=== PATIENT | female | born 1955 | race Caucasian/White ===

== ENCOUNTER 2022-10-25 02:08 | Inpatient (IN) | payer MEDICARE, SELFPAY ==
[2022-10-25] VITALS (18 sets, daily range): BP systolic 114–179; BP diastolic 65–89; PULSE 96–128; RESP 16–24; TEMP 36.3–36.6; O2SAT 88–98; BMI 31.4; BMI 31.1
--- NOTE | 2022-10-25 02:51 | XRR_ITS ---
PROCEDURE INFORMATION: Exam: XR Chest Exam date and time: 10/25/2022 3:19 AM Age: 66 years old Clinical indication: Shortness of breath; Additional info: SOB TECHNIQUE: Imaging protocol: Radiologic exam of the chest. Views: 1 view. COMPARISON: No relevant prior studies available. FINDINGS: Lungs: Right basilar airspace opacity. Pleural spaces: Unremarkable. No pleural effusion. No pneumothorax. Heart/Mediastinum: Unremarkable. No cardiomegaly. Bones/joints: Partially imaged hardware in the cervical spine. XR/XR chest 1V portable [id number] IMPRESSION: Right basilar airspace opacity may reflect atelectasis versus pneumonia.
[2022-10-25] MEDS: ipratropium-albuterol 3 mL Neb INHALATION ×4 (03:01→19:46)
[2022-10-25 03:09] LABS: Basophils % 0.2 %; Eosinophils # 0.2 10^3/uL (0.0-0.8); Eosinophils % 2.5 %; Hematocrit 49.2 % (37.0-47.0); Hemoglobin 15.6 g/dL (11.5-15.3); Lymphocytes # 1.8 10^3/uL (0.8-4.8); Lymphocytes % 19.7 %; Mean Corpuscular HGB Conc 31.7 g/dL (30.0-36.0); Mean Corpuscular Hemoglobin 30.8 pg (28.0-34.0); Mean Platelet Volume 12.4 fL (7.4-10.4); Monocytes # 0.6 10^3/uL (0.2-0.9); Monocytes % 6.2 %; Neutrophils % 70.9 %; Nucleated Red Blood Cells % 0 %; Platelet Count 143 10^3/cmm (130-400); Red Blood Count 5.07 10^6/uL (4.1-5.3); Red Cell Distribution Width 13.6 % (12.1-15.1); White Blood Count 9.3 10^3/uL (4.0-10.0)
[2022-10-25 03:15] LABS: ABG PCO2 48.5 mmHg (35-45); ABG PH Result 7.35 (7.35-7.45); Arterial Blood Gas Hematocrit 50.2 % (37-47); Base Excess ABG 0.5 mmol/L (-2.0-2.0); Blood Gas Allen Test Pos; Blood Gas LPM 2.5 %; Blood Gas Sample Site Radial, left; Blood Gas Sample Type Arterial; Carboxyhemoglobin 1.8 %THgb (0.4-20.1); HGB O2 Sat 96.1 % (95-100); Methemoglobin 0.5 % (0.4-1.5); Oxygen Device NC; Total Hemoglobin 16.4 g/dL (12-16)
[2022-10-25 03:33] LABS: Lactic Sepsis W/Reflex 0.8 mmol/L (0.5-2.2)
[2022-10-25 03:43] LABS: Alanine Aminotransferase 10 U/L (0-33); Alkaline Phosphatase 64 U/L (35-105); Anion Gap 15.3 (5-19); Aspartate Amino Transferase 14 U/L (0-32); Blood Urea Nitrogen 10 mg/dL (8-23); Carbon Dioxide 24 mmol/L (22-29); Chloride 101 mmol/L (98-107); Globulin 3.4 g/dL (1.3-4.6); Glucose 129 mg/dL (65-115); Magnesium 1.8 mg/dL (1.7-2.3); NT Pro B Type Natriuretic Pept 46 pg/mL (0-125); Osmolality Calculated 283 mOsm/kg (285-295); Potassium 4.3 mmol/L (3.5-5.1); Sodium 136 mmol/L (136-145); Total Bilirubin 0.4 mg/dL (0.15-1.2); Total Protein 7.4 g/dL (6.6-8.7)
[2022-10-25 03:48] LABS: Influenza A by IFA negative (Negative); Influenza B by IFA negative (Negative); SARS Covid-2 Antigen negative (Negative)
--- NOTE | 2022-10-25 04:23 | ED_ITS ---
HPI - SOB/Dyspnea General: Chief Complaint: Shortness of Breath/Dyspnea Stated Complaint: Difficulty breathing, COPD flare up Time Seen by Provider: 10/25/22 02:23 History of Present Illness: HPI Narrative: 66-year-old lady with a history of COPD. She presents with increasing shortness of breath, wheezing, cough and sputum production over the last couple of days. She does not have oxygen at home. She notes that it was hard to keep her oxygen level up the past day or so. She denies overt chest pain, but does note tightness. MD elicited complaint: shortness of breath and cough Pertinent past history: COPD Onset (ago): day(s) Context: other Timing: progressively worsening Severity: moderate Exacerbating factors: lying flat and exertion Relieving factors: oxygen and bronchodilators Known history of: COPD Associated symptoms: Reports chest congestion, cough, nausea and orthopnea; Deny abdominal pain, chest pain, diaphoresis, extremity pain, fever(s) or vomiting Treatment prior to arrival: none Related Data: Home oxygen amount: none Review of Systems Const: Denies: fever(s), chills or diaphoresis ENMT: Denies: throat pain Card: Reports: orthopnea; Denies: chest pain Resp: Reports: dyspnea, productive cough and chest congestion GI: Reports: nausea; Denies: abdominal pain or vomiting Musc: Denies: extremity pain Skin/Breast: Denies: rash PFSH ED PFSH: Medical History Anxiety Back pain COPD (chronic obstructive pulmonary disease) Diabetes type 2, controlled Dyslipidemia associated with type 2 diabetes mellitus Former smoker HTN (hypertension) with goal to be determined Incontinence Insomnia Neuropathy Osteoarthritis Spinal stenosis Surgical History History of back surgery Family History Father No problems noted. Mother Chronic kidney disease (CKD) Hypertension Social History Smoking and tobacco status: former smoker Quit status (tobacco): has quit using tobacco Second hand smoke exposure: No Smoking risk assessment/counseling performed?: No Alcohol intake: never Desire information about alcohol rehabilitation?: No Counseling given: No Substance/Drug Use: never Desire information about substance/drug rehabilitation?: No Counseling given: No Physical Exam Const: GENERAL APPEARANCE: cooperative, ill appearing and frail appearing HENMT: COMMON NORMALS: normocephalic, atraumatic and Normal external nose present HEAD & SCALP: normocephalic and atraumatic FACE & SINUS: normal facial exam and face symmetric NOSE: Normal external nose present Eye: COMMON NORMALS: Equal, round and reactive pupils present and EOMs intact bilaterally PUPIL: Yes Equal, round and reactive pupils present Neck/C-Spine: GENERAL: Yes trachea midline Chest: CHEST: Yes Symmetrical chest wall rise Resp: EFFORT & INSPECTION: Yes tachypneic and Yes labored AUSCULTATION: rhonchi, wheezes and diminished lung sounds Cardio: COMMON NORMALS: regular rhythm RATE: tachycardic RHYTHM: regular rhythm GI: COMMON NORMALS: Normal to inspection, nondistended, normoactive bowel sounds present Extremity: COMMON NORMALS: no pedal edema Neuro: DEANNA COMA SCALE: document GCS findings [place] coma scale eye o pening: Spontaneous [place] coma scale verbal response: Orientated Deanna coma scale motor response: Obey commands [place] coma scale total score: 15 SENSORY EXAM: Yes extremities (intact) Psych: COMMON NORMALS: speech normal SPEECH: Yes normal speech Skin: COMMON NORMALS: no rashes or lesions noted GENERAL SKIN EXAM: no rashes or lesions noted Course Vital Signs: Vital signs: Vital Signs Temperature 97.4 F L 10/25/22 02:18 Pulse Rate 109 H 10/25/22 04:12 Respiratory Rate 16 10/25/22 04:12 Blood Pressure 153/83 10/25/22 04:12 Pulse Oximetry 94 10/25/22 04:12 Oxygen Delivery Me thod Nasal Cannula 10/25/22 03:31 Oxygen Flow Rate 4 10/25/22 03:31 MDM - SOB/Dyspnea Medical Decision Making 66-year-old female with COPD. She presents with shortness of breath. She is wheezing and has rhonchi on exam bilaterally. Chest x-ray does not reveal an infiltrate. Her white blood cell count is 9. Hemoglobin 15. BMP is not remarkable. Liver enzymes are nonremarkable. Influenza COVID swabs are negative. She has received DuoNeb treatments, Solu-Medrol. She is improved to some degree, but still requiring 3 L of oxygen to get to 90% and above. She is still tachycardic in the 110s. She will require hospitalization for oxygen therapy, nebs, steroids, etc. She is diabetic, so blood sugar control may be an issue on steroids. Hospitalist is aware. Lab Data 10/25/22 03:00 10/25/22 03:00 Labs/Radiology: Laboratory Results WBC 9.3 10^3/uL (4.0-10.0) 10/25/22 03:00 RBC 5.07 10^6/uL (4.1-5.3) 10/25/22 03:00 Hgb 15.6 g/dL (11.5-15.3) H 10/25/22 03:00 Hct 49.2 % (37.0-47.0) H 10/25/22 03:00 MCV 97.0 fl (81-99) 10/25/22 03:00 MCH 30.8 pg (28.0-34.0) 10/25/22 03:00 MCHC 31.7 g/dL (30.0-36.0) 10/25/22 03:00 RDW 13.6 % (12.1-15.1) 10/25/22 03:00 Plt Count 143 10^3/cmm (130-400) 10/25/22 03:00 MPV 12.4 fL (7.4-10.4) H 10/25/22 03:00 Neut % (Auto) 70.9 % 10/25/22 03:00 Lymph % (Auto) 19.7 % 10/25/22 03:00 Hanson % (Auto) 6.2 % 10/25/22 03:00 Eos % (Auto) 2.5 % 10/25/22 03:00 Baso % (Auto) 0.2 % 10/25/22 03:00 Neut # (Auto) 6.60 10^3/uL (1.8-7.7) 10/25/22 03:00 Lymph # (Auto) 1.8 10^3/uL (0.8-4.8) 10/25/22 03:00 Hanson # (Auto) 0.6 10^3/uL (0.2-0.9) 10/25/22 03:00 Eos # (Auto) 0.2 10^3/uL (0.0-0.8) 10/25/22 03:00 Baso # (Auto) 0.0 10^3/uL (0.0-0.1) 10/25/22 03:00 Nucleated RBC % (auto) 0 % 10/25/22 03:00 Nucleated RBCs # 0.0 /100WBC 10/25/22 03:00 Specimen Type Arterial 10/25/22 03:05 Sample Site Radial, left 10/25/22 03:05 ABG pH 7.35 (7.35-7.45) 10/25/22 03:05 ABG pCO2 48.5 mmHg (35-45) H 10/25/22 03:05 ABG pO2 97.0 mmHg (80.0-100.0) 10/25/22 03:05 ABG HCO3 27.0 mmol/L (22-26) H 10/25/22 03:05 ABG Base Excess 0.5 mmol/L (-2.0-2.0) 10/25/22 03:05 Moises Test Pos 10/25/22 03:05 Hematocrit 50.2 % (37-47) H 10/25/22 03:05 Hgb O2 Saturation 96.1 % (95-100) 10/25/22 03:05 Carboxyhemoglobin 1.8 %THgb (0.4-20.1) 10/25/22 03:05 Methemoglobin 0.5 % (0.4-1.5) 10/25/22 03:05 Total Hemoglobin 16.4 g/dL (12-16) H 10/25/22 03:05 O2 Delivery Device Nc 10/25/22 03:05 O2 Liters/Min 2.5 % 10/25/22 03:[address] [facility] 10/25/22 03:05 Sodium 136 mmol/L (136-145) 10/25/22 03:00 Potassium 4.3 mmol/L (3.5-5.1) 10/25/22 03:00 Chloride 101 mmol/L (98-107) 10/25/22 03:00 Carbon Dioxide 24 mmol/L (22-29) 10/25/22 03:00 Anion Gap 15.3 (5-19) 10/25/22 03:00 BUN 10 mg/dL (8-23) 10/25/22 03:00 Creatinine 0.6 mg/dL (0.5-0.9) 10/25/22 03:00 GFR Calculation 100.0 mL/min (90-130) 10/25/22 03:00 Glucose 129 mg/dL (65-115) H 10/25/22 03:00 Calculated Osmolality 283 mOsm/kg (285-295) L 10/25/22 03:00 Lactic Acid 0.8 mmol/L (0.5-2.2) 10/25/22 03:00 Calcium 9.0 mg/dL (8.5-10.5) 10/25/22 03:00 Magnesium 1.8 mg/dL (1.7-2.3) 10/25/22 03:00 Total Bilirubin 0.4 mg/dL (0.15-1.2) 10/25/22 03:00 AST 14 U/L (0-32) 10/25/22 03:00 ALT 10 U/L (0-33) 10/25/22 03:00 Alkaline Phosphatase 64 U/L (35-105) 10/25/22 03:00 NT-Pro-B Natriuret Pep 46 pg/mL (0-125) 10/25/22 03:00 Total Protein 7.4 g/dL (6.6-8.7) 10/25/22 03:00 Albumin 4.0 g/dL (3.5-5.2) 10/25/22 03:00 Globulin 3.4 g/dL (1.3-4.6) 10/25/22 03:00 Influenza Type A Ag negative (Negative) 10/25/22 03:30 Influenza Type B Ag negative (Negative) 10/25/22 03:30 SARS-CoV-2 Ag (Rapid) negative (Negative) 10/25/22 03:30 Discharge Plan Discharge Patient Disposition: Admitted As Inpatient Clinical Impression: Acute respiratory failure with hypoxia, Acute exacerbation of chronic obstructive airways disease Condition: Fair Coding Level of Care Code ED Validation Consultant for Paul Peña
--- NOTE | 2022-10-25 06:13 | PM.HP ---
Providers/Chief Complaint Admitting Physician: Samir Pimentel MD Primary Care Provider: Cooper Patel MD Chief Complaint: Difficulty breathing, COPD flare up History of Present Illness Fanny Dao is a 66 year old female with a past medical history of COPD, type 2 diabetes mellitus, hypertension who presents [facility] due to a 2-day history of increased shortness of breath, wheezing, productive cough. Denies any fevers, no chills, no fatigue, no malaise. Does report a productive cough, increased sputum production, yellow-green sputum. Increased shortness of breath, shortness of breath with exertion, increased wheezing, no chest pain, no palpitations Review of Systems Const: Denies: fever(s) Eyes: Denies: change in vision ENMT: Denies: nasal congestion Card: Denies: chest pain or palpitations Resp: Reports: dyspnea and non-productive cough GI: Denies: abdominal pain, nausea or vomiting : Denies: dysuria Skin/Breast: Denies: rash Neuro: Denies: headache(s), dizziness or vertigo Psych: Denies: anxiety or depression Endo: Denies: polyuria or polydipsia Medications/Allergies Home Medications Medication Instructions Recorded Confirmed Last Taken Type amlodipine 5 mg tablet 5 mg PO DAILY blood pressure #30 09/16/22 09/30/22 Unknown Rx tabs ipratropium bromide 0.02 % 2.5 ml inhalation Q6H PRN 09/16/22 09/30/22 Unknown History solution for inhalation metformin 500 mg tablet 500 mg PO DAILY #30 tabs 09/16/22 09/30/22 Unknown Rx prednisone 10 mg tablet 10 mg PO DAILY PRN 09/16/22 09/30/22 Unknown History pregabalin 100 mg capsule 100 mg PO TID diabetic neuropathy 09/16/22 09/30/22 Unknown Rx #90 caps lisinopril 40 mg tablet 40 mg PO DAILY hypertension #30 09/17/22 09/17/22 Unknown Rx tabs guaifenesin 600 mg tablet, 600 mg PO BID breathing #60 tabs 09/30/22 09/30/22 Unknown Rx extended release 12 hr hydroxyzine HCl 25 mg tablet 25 mg PO BID PRN anxiety #60 tabs 09/30/22 09/30/22 Unknown Rx rosuvastatin 20 mg tablet 20 mg PO DAILY cholesterol #30 tabs 09/30/22 09/30/22 Unknown Rx sertraline 100 mg tablet 100 mg PO DAILY mental health #30 09/30/22 09/30/22 Unknown Rx tabs trazodone 100 mg tablet 100 mg PO DAILY PRN insomnia #30 09/30/22 09/30/22 Unknown Rx tabs albuterol sulfate 90 mcg/actuation 2 puff inhalation QID #8.5 grams 10/17/22 Unknown Rx aerosol inhaler (Ventolin HFA) fluticasone fur. 100 mcg-umeclid 1 inh inhalation DAILY #60 ea 10/17/22 Unknown Rx 62.5 mcg-vilant 25 mcg inhalat.powder (Trelegy Ellipta) hydrocodone 7.5 mg-acetaminophen 1 tab PO TID PRN chronic pain 30 10/22/22 Unknown Rx 325 mg tablet days #90 tabs Allergies Allergy/AdvReac Type Severity Reaction Status Date / Time iodine contrast AdvReac malave Uncoded 09/30/22 11:16 throughout body PFSH Acute PFSH: Medical History Anxiety Back pain COPD (chronic obstructive pulmonary disease) Diabetes type 2, controlled Dyslipidemia associated with type 2 diabetes mellitus Former smoker HTN (hypertension) with goal to be determined Incontinence Insomnia Neuropathy Osteoarthritis Spinal stenosis Surgical History History of back surgery Family History Father No problems noted. Mother Chronic kidney disease (CKD) Hypertension Social History Smoking and tobacco status: former smoker Quit status (tobacco): has quit using tobacco Second hand smoke exposure: No Smoking risk assessment/counseling performed?: No Alcohol intake: never Desire information about alcohol rehabilitation?: No Counseling given: No Substance/Drug Use: never Desire information about substance/drug rehabilitation?: No Counseling given: No Vitals/I&O/Wt Last Vital Signs Temp 97.4 F L 10/25/22 02:18 Pulse 109 H 10/25/22 04:12 Resp 16 10/25/22 04:12 BP 153/83 10/25/22 04:12 Pulse Ox 94 10/25/22 04:12 O2 Del Method Nasal Cannula 10/25/22 03:31 O2 Flow Rate 4 10/25/22 03:31 Weight last 48 hrs Weight 85.729 kg Physical Exam Const: COMMON NORMALS: no acute distress and patient oriented x3 HENMT: COMMON NORMALS: normocephalic HEAD & SCALP: normocephalic Eye: COMMON NORMALS: Equal, round and reactive pupils present and EOMs intact bilaterally Neck/C-Spine: COMMON NORMALS: full ROM and no lymphadenopathy Resp: COMMON NORMALS: normal respiratory effort, No retractions and No use of accessory muscles AUSCULTATION: wheezes Cardio: COMMON NORMALS: regular rate, regular rhythm, S1 normal heart sound present and S2 normal heart sound present RATE: regular rate RHYTHM: regular rhythm HEART SOUNDS: S1 normal heart sound present and S2 normal heart sound present GI: COMMON NORMALS: Normal to inspection, nondistended, normoactive bowel sounds present, Soft to palpation and non-tender Extremity: COMMON NORMALS: no pedal edema Neuro: COMMON NORMALS: patient oriented x3, CN's II-XII intact bilaterally and moves all extremities Psych: COMMON NORMALS: mental status grossly normal Data 10/25/22 03:00 10/25/22 03:00 Micro: Microbiology 10/25/22 05:18 Blood Culture - Preliminary Blood SPECIMEN COLLECTED 10/25/22 03:00 Blood Culture - Preliminary Blood SPECIMEN COLLECTED A&P Assessment and plan (1) Acute respiratory failure with hypoxia: (2) Acute exacerbation of chronic obstructive airways disease: (3) Pneumonia: Plan Acute hypoxic respiratory failure -Secondary to COPD, pneumonia COPD exacerbation -Ipratropium -Budesonide -Solu-Medro -Watch respiratory status pneumonia -a right lower lobe -Rocephin -Azithromycin -Sputum cultures, blood cultures Type 2 diabetes mellitus, low-dose sliding scale Full code Lovenox for DVT prophylaxis Attestations Medical Necessity Statement*: patient requires hospitalization for copd exacerbation, pneumonia, inpatient, greater than 2 midnights Diagnoses Acute respiratory failure with hypoxia J96.01 Acute exacerbation of chronic obstructive airways disease J44.1 Pneumonia J18.9
[2022-10-25] MEDS: cefTRIAXone 1,000 MG in sodium chloride 0.9% (plus) 50 ML 100 MG IV (08:22)
[2022-10-25] MEDS: amlodipine 5 mg Tablet PO (08:23)
[2022-10-25] MEDS: pregabalin 100 mg Capsule PO ×3 (08:23→20:04)
[2022-10-25 08:29] LABS: Estmated Average Glucose 143; Hemoglobin A1C 6.6 % (4.0-6.0)
[2022-10-25 08:40] LABS: Glucose Point of Care 185 mg/dL (70-110)
[2022-10-25 08:45] LABS: Chol HDL Ratio 2.85 mg/dL (0.0-4.40); Cholesterol 94 mg/dL (0-200); HDL Cholesterol 33 mg/dL (60-100); LDL Cholesterol Calculated 45 mg/dL (50-129); LDL HDL Ratio 1.36 RATIO (0.00-3.22); Thyroid Stimulating Hormone 3.36 uIU/mL (0.27-4.20); Triglycerides 81 mg/dL (0-150)
[2022-10-25] MEDS: enoxaparin 40 mg/0.4 mL Syringe SUBCUT (08:45)
[2022-10-25] MEDS: lisinopril 20 mg Tablet 40 MG PO (08:45)
[2022-10-25] MEDS: pantoprazole 40 mg SDV IVP (08:48)
[2022-10-25] MEDS: azithromycin 500 MG in sodium chloride 0.9% 250 ML 250 MG IV (10:02)
[2022-10-25] MEDS: sertraline 100 mg Tablet 50 MG PO ×2 (10:06→18:08)
[2022-10-25] MEDS: insulin lispro 100 unit/1 mL SUBCUT ×3 (10:06→18:08)
--- NOTE | 2022-10-25 10:57 | ECG_ITS ---
[facility] Test Date: 2022-10-25 Pat Name: Fanny Dao Department: Room: 259 Gender: Female Private Pilot: : 1955 Requested By: Arik Downing Order Number: [id number] Reading MD: Tin Rosario M.D. Measurements Intervals [place] Rate: 113 P: 73 FL: 158 QRS: 69 QRSD: 78 T: 31 QT: 307 QTc: 422 Interpretive Statements SINUS TACHYCARDIA LOW QRS VOLTAGE IN PRECORDIAL LEADS [QRS DEFLECTION < 1.0 mV IN CHEST LEADS] ABNORMAL RHYTHM ECG No previous ECG available for comparison Electronically Signed On 10-26-2022 9:46:17 CDT by Tin Rosario M.D. [email or web address]
[2022-10-25 11:11] LABS: Glucose Point of Care 193 mg/dL (70-110)
[2022-10-25] MEDS: HYDROcodone-acetaminophen 7.5-325 mg Tablet 1 TAB PO (14:29)
[2022-10-25 17:29] LABS: Glucose Point of Care 159 mg/dL (70-110)
[2022-10-25] MEDS: budesonide 0.5 mg/2 mL Neb INHALATION (19:46)
[2022-10-25] MEDS: atorvastatin 40 mg Tablet 80 MG PO (20:04)
--- NOTE | 2022-10-25 20:12 | XRR_ITS ---
PROCEDURE INFORMATION: Exam: XR Chest Exam date and time: 10/25/2022 8:34 PM Age: 66 years old Clinical indication: Shortness of breath; Additional info: Increased SOB TECHNIQUE: Imaging protocol: Radiologic exam of the chest. Views: 1 view. COMPARISON: CR (CHEST, ) 10/25/2022 3:19 AM FINDINGS: Lungs: The lung bases are suboptimally assessed due to technique however the upper lungs are clear of focal consolidation. Some improvement of ill-defined right basilar opacity. Minimal central peribronchial thickening appears stable. Probable mild upper lobe emphysema. Pleural spaces: Unremarkable. No pleural effusion. No pneumothorax. Heart/Mediastinum: Cardiac silhouette appears normal in size. No obvious vascular congestion. Bones/joints: No acute osseous findings. Other findings: Single view was submitted. XR/XR chest 1V portable [id number] IMPRESSION: No obvious acute consolidation. Slight interval improvement of ill-defined right basilar opacity. Suboptimal lung base assessment. Followup including lateral view may be obtained if clinically indicated.
[2022-10-25 20:13] LABS: ABG PCO2 47.9 mmHg (35-45); ABG PH Result 7.35 (7.35-7.45); Arterial Blood Gas Hematocrit 47.1 % (37-47); Blood Gas Allen Test Pos; Blood Gas Sample Type Arterial; HCO3 ABG 26.3 mmol/L (22-26); HGB O2 Sat 97.3 % (95-100); Ionized Calcium Level - ABG 1.2 mmol/L (1.1-1.4); Methemoglobin 0.1 % (0.4-1.5); Oxygen Saturation ABG 98.4; Potassium Level - ABG 4.4 mmol/L (3.5-5.0); Total Hemoglobin 15.4 g/dL (12-16)
[2022-10-25 20:14] LABS: Alveolar-Arterial Oxygen Gradi 15.7 mmHg (5-10); Blood Gas Operator Identificat MONRO; Blood Gas Sample Site Radial, left; Oxygen Device NC
--- NOTE | 2022-10-25 20:37 | PM.PN ---
Subjective Subjective: She is feeling slightly better. Breathing little easier. Less cough. Vitals/I&O/Wt Last Vital Signs Temp 97.6 F 10/25/22 19:39 Pulse 104 H 10/25/22 19:46 Resp 22 H 10/25/22 19:46 BP 114/66 10/25/22 19:39 Pulse Ox 94 10/25/22 19:46 O2 Del Method Nasal Cannula 10/25/22 19:46 O2 Flow Rate 3 10/25/22 19:46 10/25/22 10/25/22 10/25/22 06:59 14:59 22:59 Intake Total 1020 / 1020 240 / 1260 Balance 1020 / 1020 240 / 1260 Weight last 48 hrs Weight 85.049 kg Weight 85.729 kg Physical Exam Const: COMMON NORMALS: patient oriented x3 and alert GENERAL APPEARANCE: cooperative ORIENTATION/CONSCIOUSNESS: Yes awake HENMT: COMMON NORMALS: oropharynx normal Neck/C-Spine: COMMON NORMALS: no JVD Resp: AUSCULTATION: wheezes and diminished lung sounds Cardio: COMMON NORMALS: no JVD, regular rhythm, S1 normal heart sound present, S2 normal heart sound present and No murmurs present (Cardio) RHYTHM: regular rhythm HEART SOUNDS: S1 normal heart sound present and S2 normal heart sound present GI: COMMON NORMALS: Normal to inspection, nondistended, normoactive bowel sounds present, Soft to palpation and non-tender PALPATION: Yes Soft to palpation Extremity: COMMON NORMALS: no joint enlargement and no pedal edema Neuro: COMMON NORMALS: patient oriented x3 and moves all extremities SENSORIUM/ORIENTATION: Yes alert Skin: COMMON NORMALS: no rashes or lesions noted GENERAL SKIN EXAM: no rashes or lesions noted Data 10/25/22 03:00 10/25/22 03:00 Micro: Microbiology 10/25/22 05:18 Blood Culture - Preliminary Blood SPECIMEN COLLECTED 10/25/22 03:00 Blood Culture - Preliminary Blood SPECIMEN COLLECTED A&P Assessment and plan (1) Acute respiratory failure with hypoxia: (2) Acute exacerbation of chronic obstructive airways disease: (3) Pneumonia: Plan Acute hypoxic respiratory failure -Secondary to COPD, pneumonia COPD exacerbation -Ipratropium -Budesonide -Solu-Medro -Watch respiratory status pneumonia Blood culture noted so far blood culture sent for analysis and Gram stain. Follow-up CBC. Sinus tachycardia noted with some improvement. Check D-dimer. -a right lower lobe Continue -Rocephin -Azithromycin -Follow-up sputum cultures, blood cultures Type 2 diabetes mellitus, low-dose sliding scale. A1c noted 6.6. Glucose noted 120s-190s. And Lantus 5. Full code Lovenox for DVT prophylaxis Attestations Medical Necessity Statement*: Continue admission for assessment and management of COPD exacerbation, pneumonia. Diagnoses Acute respiratory failure with hypoxia J96.01 Acute exacerbation of chronic obstructive airways disease J44.1 Pneumonia J18.9
[2022-10-25 20:56] LABS: Glucose Point of Care 165 mg/dL (70-110)
[2022-10-26] VITALS (10 sets, daily range): BP systolic 102–133; BP diastolic 59–83; PULSE 90–109; RESP 15–20; TEMP 36.3–36.8; O2SAT 90–96
[2022-10-26 05:37] LABS: Basophils % 0.1 %; Eosinophils % 0.2 %; Hematocrit 47.9 % (37.0-47.0); Hemoglobin 15.2 g/dL (11.5-15.3); Lymphocytes % 21.5 %; Mean Corpuscular HGB Conc 31.7 g/dL (30.0-36.0); Mean Corpuscular Hemoglobin 31.3 pg (28.0-34.0); Mean Corpuscular Volume 98.8 fl (81-99); Mean Platelet Volume 12.6 fL (7.4-10.4); Monocytes % 10.5 %; Neutrophils # 6.09 10^3/uL (1.8-7.7); Neutrophils % 67.3 %; Nucleated Red Blood Cells % 0 %; Platelet Count 139 10^3/cmm (130-400); Red Blood Count 4.85 10^6/uL (4.1-5.3); Red Cell Distribution Width 13.6 % (12.1-15.1); White Blood Count 9.1 10^3/uL (4.0-10.0)
[2022-10-26 06:14] LABS: Anion Gap 15.9 (5-19); Blood Urea Nitrogen 16 mg/dL (8-23); Calcium 9.4 mg/dL (8.5-10.5); Carbon Dioxide 27 mmol/L (22-29); Chloride 103 mmol/L (98-107); Glucose 105 mg/dL (65-115); Osmolality Calculated 294 mOsm/kg (285-295); Potassium 4.9 mmol/L (3.5-5.1); Sodium 141 mmol/L (136-145)
[2022-10-26 06:48] LABS: Glucose Point of Care 109 mg/dL (70-110)
[2022-10-26] MEDS: pregabalin 100 mg Capsule PO ×3 (08:17→21:00)
[2022-10-26] MEDS: HYDROcodone-acetaminophen 7.5-325 mg Tablet 1 TAB PO (08:17)
[2022-10-26] MEDS: enoxaparin 40 mg/0.4 mL Syringe SUBCUT (08:19)
[2022-10-26] MEDS: cefTRIAXone 1,000 MG in sodium chloride 0.9% (plus) 50 ML 100 MG IV (08:20)
[2022-10-26] MEDS: azithromycin 500 MG in sodium chloride 0.9% 250 ML 250 MG IV (08:21)
[2022-10-26] MEDS: pantoprazole 40 mg SDV IVP (08:23)
[2022-10-26] MEDS: ipratropium-albuterol 3 mL Neb INHALATION ×3 (08:36→19:47)
[2022-10-26] MEDS: budesonide 0.5 mg/2 mL Neb INHALATION (08:36)
--- NOTE | 2022-10-26 08:57 | USR_ITS ---
PROCEDURE INFORMATION: Exam: US Duplex Lower Extremity Veins, Bilateral Exam date and time: 10/26/2022 1:10 PM Age: 66 years old Clinical indication: Swelling (edema) of limb; Lower extremity, bilateral; Additional info: Assess for dvt TECHNIQUE: Imaging protocol: Real-time duplex ultrasound of the bilateral extremities with 2-D soares scale, color Doppler flow and spectral waveform analysis including responses to compression and other maneuvers (when performed) with image documentation. Complete exam focused on the lower extremity veins. COMPARISON: No relevant prior studies available. FINDINGS: Right deep veins: Unremarkable. The common femoral, femoral, proximal profunda femoral and popliteal veins are patent without thrombus. Normal Doppler waveforms. Normal compressibility and/or augmentation response. Right superficial veins: Saphenofemoral junction is patent without thrombus. Left deep veins: Unremarkable. The common femoral, femoral, proximal profunda femoral and popliteal veins are patent without thrombus. Normal Doppler waveforms. Normal compressibility and/or augmentation response. Left superficial veins: Saphenofemoral junction is patent without thrombus. Soft tissues: Unremarkable. US/[place] [id number] IMPRESSION: No evidence of deep vein thrombosis.
[2022-10-26 12:11] LABS: Glucose Point of Care 118 mg/dL (70-110)
--- NOTE | 2022-10-26 15:57 | PC.NURSE ---
This nurse flexing out. Report given to LARISSA Miller. All questions answered.
[2022-10-26 16:25] LABS: Glucose Point of Care 137 mg/dL (70-110)
[2022-10-26] MEDS: sertraline 100 mg Tablet 50 MG PO (17:19)
[2022-10-26 20:51] LABS: Glucose Point of Care 103 mg/dL (70-110)
[2022-10-26] MEDS: atorvastatin 40 mg Tablet 80 MG PO (20:59)
--- NOTE | 2022-10-26 22:56 | PM.PN ---
Subjective Subjective: She is having some cough. Denies chest pain. Vitals/I&O/Wt Last Vital Signs Temp 97.6 F 10/26/22 20:00 Pulse 92 10/26/22 20:00 Resp 17 10/26/22 20:00 BP 130/76 10/26/22 20:00 Pulse Ox 95 10/26/22 20:00 O2 Del Method Nasal Cannula 10/26/22 19:48 O2 Flow Rate 4 10/26/22 19:48 FiO2 30 10/25/22 20:57 10/26/22 10/26/22 10/26/22 06:59 14:59 22:59 Intake Total 780 / 780 Balance 780 / 780 Weight last 48 hrs Weight 85.049 kg Weight 85.729 kg Physical Exam Const: COMMON NORMALS: patient oriented x3 and alert GENERAL APPEARANCE: cooperative ORIENTATION/CONSCIOUSNESS: Yes awake HENMT: COMMON NORMALS: oropharynx normal Neck/C-Spine: COMMON NORMALS: no JVD Resp: AUSCULTATION: wheezes and diminished lung sounds Cardio: COMMON NORMALS: no JVD, regular rhythm, S1 normal heart sound present, S2 normal heart sound present and No murmurs present (Cardio) RHYTHM: regular rhythm HEART SOUNDS: S1 normal heart sound present and S2 normal heart sound present GI: COMMON NORMALS: Normal to inspection, nondistended, normoactive bowel sounds present, Soft to palpation and non-tender PALPATION: Yes Soft to palpation Extremity: COMMON NORMALS: no joint enlargement and no pedal edema Neuro: COMMON NORMALS: patient oriented x3 and moves all extremities SENSORIUM/ORIENTATION: Yes alert Skin: COMMON NORMALS: no rashes or lesions noted GENERAL SKIN EXAM: no rashes or lesions noted Data 10/26/22 04:37 10/26/22 04:37 Micro: Microbiology 10/25/22 05:18 Blood Culture - Preliminary Blood NEGATIVE TO DATE 10/25/22 03:00 Blood Culture - Preliminary Blood NEGATIVE TO DATE A&P Assessment and plan (1) Acute respiratory failure with hypoxia: (2) Acute exacerbation of chronic obstructive airways disease: (3) Pneumonia: Plan Acute hypoxic respiratory failure -Secondary to COPD, pneumonia With abnormal D-dimer, 1.8. She has allergy to iodinated contrast. Discussed with her assessment by VQ scan with empiric anticoagulation for now to which she is agreeable.. Venous duplex noted without evidence of DVT. VQ scan requested. In case negative, please de-escalate anticoagulation. COPD exacerbation Looks like she did not receive Solu-Medrol beyond first dose. Add 30 mg every 6. -Ipratropium -Budesonide -Solu-Medro -Watch respiratory status Pneumonia Blood culture noted so far blood culture sent for analysis and Gram stain. Follow-up CBC. Sinus tachycardia noted with some improvement. Check D-dimer. -a right lower lobe Continue -Rocephin -Azithromycin -Follow-up sputum cultures, blood cultures. Blood culture noted with no growth so far. Type 2 diabetes mellitus, low-dose sliding scale. A1c noted 6.6. Glucose is doing better. Continue Lantus 5. Full code Lovenox for DVT prophylaxis Attestations Medical Necessity Statement*: Continue admission for assessment management of subcutaneous infection, pneumonia, further assessment for PE with iodinated contrast allergy. Diagnoses Acute respiratory failure with hypoxia J96.01 Acute exacerbation of chronic obstructive airways disease J44.1 Pneumonia J18.9
[2022-10-26] MEDS: enoxaparin 100 mg/mL Syringe 85 MG SUBCUT (23:51)
[2022-10-27] VITALS (16 sets, daily range): BP systolic 111–176; BP diastolic 73–84; PULSE 62–112; RESP 16–20; TEMP 36.3–36.9; O2SAT 87–99
--- NOTE | 2022-10-27 | XR_ITS ---
WS: [id number] Exam: XR chest 1V portable [id number] Date/Time of Exam: 10/27/2022 12:00 AM Reason For Exam: COMPARISON FOR VQ SCAN, SHORTNESS OF BREATH Comparison 10/25/2022. The lungs are hyperinflated. Infiltrate noted along the right heart border is unchanged in appearance . Heart size is normal. The mediastinum is not widened. Fusion hardware noted in the cervical spine. Monitoring leads superimpose the chest. XR/XR chest 1V portable [id number] IMPRESSION: 1. Infiltrate noted along the right heart border is unchanged in appearance. 2. Pulmonary hyperinflation.
[2022-10-27] MEDS: HYDROcodone-acetaminophen 7.5-325 mg Tablet 1 TAB PO ×2 (01:25→10:31)
[2022-10-27 05:38] LABS: Basophils % 0.1 %; Eosinophils % 0.6 %; Hematocrit 47.7 % (37.0-47.0); Hemoglobin 14.8 g/dL (11.5-15.3); Lymphocytes # 0.9 10^3/uL (0.8-4.8); Lymphocytes % 12.7 %; Mean Corpuscular Hemoglobin 30.6 pg (28.0-34.0); Mean Corpuscular Volume 98.8 fl (81-99); Mean Platelet Volume 12.2 fL (7.4-10.4); Monocytes # 0.1 10^3/uL (0.2-0.9); Monocytes % 1.5 %; Neutrophils # 6.13 10^3/uL (1.8-7.7); Neutrophils % 84.5 %; Nucleated Red Blood Cells % 0 %; Platelet Count 130 10^3/cmm (130-400); Red Blood Count 4.83 10^6/uL (4.1-5.3); Red Cell Distribution Width 13.8 % (12.1-15.1); White Blood Count 7.3 10^3/uL (4.0-10.0)
[2022-10-27 06:24] LABS: Anion Gap 11.8 (5-19); Blood Urea Nitrogen 18 mg/dL (8-23); Calcium 9.1 mg/dL (8.5-10.5); Carbon Dioxide 29 mmol/L (22-29); Chloride 101 mmol/L (98-107); Glucose 149 mg/dL (65-115); Osmolality Calculated 289 mOsm/kg (285-295); Potassium 4.8 mmol/L (3.5-5.1); Sodium 137 mmol/L (136-145)
[2022-10-27 06:44] LABS: Glucose Point of Care 134 mg/dL (70-110)
[2022-10-27] MEDS: budesonide 0.5 mg/2 mL Neb INHALATION ×2 (07:47→21:27)
[2022-10-27] MEDS: ipratropium-albuterol 3 mL Neb INHALATION ×2 (07:47→21:28)
[2022-10-27] MEDS: amlodipine 5 mg Tablet PO (08:09)
[2022-10-27] MEDS: sertraline 100 mg Tablet 50 MG PO ×2 (08:09→18:15)
[2022-10-27] MEDS: lisinopril 20 mg Tablet 40 MG PO (08:09)
[2022-10-27] MEDS: pregabalin 100 mg Capsule PO ×3 (08:10→20:56)
[2022-10-27 11:30] LABS: Glucose Point of Care 158 mg/dL (70-110)
--- NOTE | 2022-10-27 11:40 | P.PN_ITS ---
Subjective Subjective: Patient is experiencing shortness of breath on exertion Mild wheezing VQ scan is pending Currently on 4 L nasal cannula Home oxygen evaluation done which made her qualified for 3 L Vitals/I&O/Wt Last Vital Signs Temp 97.8 F 10/27/22 07:50 Pulse 62 10/27/22 07:50 Resp 20 H 10/27/22 07:50 BP 126/78 10/27/22 07:50 Pulse Ox 87 L 10/27/22 08:47 O2 Del Method BiPAP 10/27/22 07:50 O2 Flow Rate 3 10/27/22 08:47 FiO2 30 10/27/22 07:48 10/26/22 10/27/22 10/27/22 22:59 06:59 14:59 Intake Total 240 / 1020 120 / 120 Balance 240 / 1020 120 / 120 Physical Exam Narrative: Awake and alert GCS 15 Currently on 4 L at rest Active wheezing mild wheezing noted at the base of the lungs GCS 15 nonfocal neuro exam S1, S2 Abdomen soft Pleasant and cooperative Data 10/27/22 05:10 10/27/22 05:10 A&P Assessment and plan (1) Pneumonia: (2) Acute respiratory failure with hypoxia: (3) Acute exacerbation of chronic obstructive airways disease: (4) Dyslipidemia associated with type 2 diabetes mellitus: (5) Insomnia: (6) Former smoker: (7) Osteoarthritis: (8) Diabetes type 2, controlled: (9) COPD (chronic obstructive pulmonary disease): (10) Anxiety: (11) Spinal stenosis: (12) Back pain: (13) Incontinence: Plan Acute hypoxia related to COPD exacerbation She will need pulmonary follow-up outpatient She does use trilogy does not use oxygen at home Home oxygen valuation qualified for 2 L Continue antibiotics I will use Levaquin discontinue ceftriaxone and azithr omycin Would use p.o. steroids for active wheezing Type 2 diabetes consistent carb diet with lots of insulin Full code DVT prophylaxis with Lovenox Clinically patient is still experiencing wheezing however she has remained afebrile I will switch her antibiotics to p.o. regimen and possible discharge tomorrow No signs of DVT on venous Doppler VQ scan is pending Attestations Medical Necessity Statement*: Discharge tomorrow Diagnoses Pneumonia J18.9 Acute respiratory failure with hypoxia J96.01 Acute exacerbation of chronic obstructive airways disease J44.1 Dyslipidemia associated with type 2 diabetes mellitus E11.69; E78.5 Insomnia G47.00 Former smoker Z87.891 Osteoarthritis M19.90 Diabetes type 2, controlled E11.9 COPD (chronic obstructive pulmonary disease) J44.9 Anxiety F41.9 Spinal stenosis M48.00 Back pain M54.9 Incontinence R32
[2022-10-27] MEDS: insulin lispro 100 unit/1 mL SUBCUT (12:49)
[2022-10-27] MEDS: predniSONE 20 mg Tablet 40 MG PO (12:49)
[2022-10-27] MEDS: acetaminophen 325 mg Tablet 650 MG PO (14:57)
[2022-10-27 17:03] LABS: Glucose Point of Care 136 mg/dL (70-110)
[2022-10-27] MEDS: atorvastatin 40 mg Tablet 80 MG PO (20:56)
[2022-10-27 21:25] LABS: Glucose Point of Care 141 mg/dL (70-110)
--- NOTE | 2022-10-27 22:55 | NM_ITS ---
WS: [id number] NUCLEAR MEDICINE LUNG VENTILATION AND PERFUSION CLINICAL INFORMATION: assess for PE TECHNIQUE: Ventilation/perfusion lung scan with 30.7 mCi technetium 99m DTPA and 5.2 mCi technetium 9 9m MAA. COMPARISON: Radiograph October 27, 2022 FINDINGS: Recent radiograph reviewed. Hyperinflation. Advanced chronic emphysematous changes. Cardiomegaly. Diffuse patchy radiotracer deposition on the ventilatory images. Radiotracer deposition along the aleksander tral bronchi due to emphysematous changes. Heterogeneous radiotracer uptake on the perfusion images. Several matched ventilation and perfusion defects. No mismatched defects to indicate pulmonary embolu s. NM/NM pul vent and perfus* [id number] IMPRESSION: 1. Low probability for pulmonary embolus.
[2022-10-28] VITALS (12 sets, daily range): BP systolic 113–180; BP diastolic 59–93; PULSE 90–115; RESP 16–22; TEMP 36.3–36.8; O2SAT 92–98
[2022-10-28] MEDS: ipratropium-albuterol 3 mL Neb INHALATION ×3 (05:02→20:57)
--- NOTE | 2022-10-28 05:28 | SUR.OPER ---
This nurse discussed with the pt that orders for Vistaril were received. The pt refused this med and states that it doesn't help and that they do not want it.
[2022-10-28 05:29] LABS: Basophils % 0.1 %; Eosinophils % 0.3 %; Hematocrit 52.1 % (37.0-47.0); Hemoglobin 16.4 g/dL (11.5-15.3); Lymphocytes # 2.1 10^3/uL (0.8-4.8); Lymphocytes % 21.4 %; Mean Corpuscular HGB Conc 31.5 g/dL (30.0-36.0); Mean Corpuscular Hemoglobin 30.1 pg (28.0-34.0); Mean Corpuscular Volume 95.6 fl (81-99); Mean Platelet Volume 11.9 fL (7.4-10.4); Monocytes # 0.8 10^3/uL (0.2-0.9); Monocytes % 8.3 %; Neutrophils # 6.64 10^3/uL (1.8-7.7); Neutrophils % 69.5 %; Nucleated Red Blood Cells % 0 %; Platelet Count 199 10^3/cmm (130-400); Red Blood Count 5.45 10^6/uL (4.1-5.3); Red Cell Distribution Width 13.2 % (12.1-15.1); White Blood Count 9.6 10^3/uL (4.0-10.0)
[2022-10-28] MEDS: levoFLOXacin 750 mg Tablet PO (05:38)
[2022-10-28 05:50] LABS: Anion Gap 14.6 (5-19); Blood Urea Nitrogen 19 mg/dL (8-23); Carbon Dioxide 30 mmol/L (22-29); Chloride 99 mmol/L (98-107); Glucose 108 mg/dL (65-115); Osmolality Calculated 291 mOsm/kg (285-295); Potassium 4.6 mmol/L (3.5-5.1); Sodium 139 mmol/L (136-145)
[2022-10-28 06:40] LABS: Glucose Point of Care 114 mg/dL (70-110)
[2022-10-28] MEDS: budesonide 0.5 mg/2 mL Neb INHALATION ×2 (07:57→20:57)
[2022-10-28] MEDS: lisinopril 20 mg Tablet 40 MG PO (08:34)
[2022-10-28] MEDS: HYDROcodone-acetaminophen 7.5-325 mg Tablet 1 TAB PO (08:34)
[2022-10-28] MEDS: pregabalin 100 mg Capsule PO ×3 (08:34→20:29)
[2022-10-28] MEDS: amlodipine 5 mg Tablet PO (08:34)
[2022-10-28] MEDS: predniSONE 20 mg Tablet 40 MG PO (08:35)
[2022-10-28] MEDS: sertraline 100 mg Tablet 50 MG PO (08:38)
--- NOTE | 2022-10-28 11:37 | PM.PN ---
Subjective Subjective: Patient is getting short of breath on minimal conversation We will request ABG She were not able to qualify for a BiPAP PCO2 is around 49, will request overnight pulse ox Vitals/I&O/Wt Last Vital Signs Temp 97.4 F L 10/28/22 08:00 Pulse 101 H 10/28/22 08:02 Resp 20 H 10/28/22 08:00 BP 136/75 10/28/22 08:00 Pulse Ox 98 10/28/22 08:00 O2 Del Method BiPAP 10/28/22 08:00 O2 Flow Rate 3.5 10/28/22 08:00 FiO2 30 10/28/22 05:02 10/27/22 10/28/22 10/28/22 22:59 06:59 14:59 Intake Total 480 / 840 Balance 480 / 840 Physical Exam Narrative: Conversational dyspnea Mild wheezing Crackles at base of the lungs Patient is otherwise not complaining of active chest pain Appropriate mood and affect Abdomen distended No active signs of fluid overload Fatigued and lethargic She is leaning towards her left side Also experiencing dry cough S1, S2 sinus tachycardia Data 10/28/22 05:22 10/28/22 05:22 A&P Assessment and plan (1) Pneumonia: (2) Acute respiratory failure with hypoxia: (3) Acute exacerbation of chronic obstructive airways disease: (4) Dyslipidemia associated with type 2 diabetes mellitus: (5) Insomnia: (6) Former smoker: (7) Diabetes type 2, controlled: (8) COPD (chronic obstructive pulmonary disease): (9) Sinus tachycardia: (10) Dyspnea: Plan Acute on chronic hypoxic respiratory failure Acute COPD exacerbation Community-acquired pneumonia Patient has conversational dyspnea I will continue her antibiotics Add IV steroids We will give her IV magnesium to see if wheezing will improve Tachycardia no PE She is getting DVT prophylactic regimen of Lovenox Continue DuoNeb She will not qualify for BiPAP however I do believe her COPD is pretty severe at this stage, she has pursed lip breathing, she is high risk for readmissions We will request pulse ox study We will touch this with residential case manager to see if we can get BiPAP approved ask home point Full code Requested ABG EKG She will definitely qualify for pulmonary rehab, She will need pulmonary outpatient referral Son updated Attestations Medical Necessity Statement*: Patient will need 1 more day she has active wheezing, conversational dyspnea Diagnoses Pneumonia J18.9 Acute respiratory failure with hypoxia J96.01 Acute exacerbation of chronic obstructive airways disease J44.1 Dyslipidemia associated with type 2 diabetes mellitus E11.69; E78.5 Insomnia G47.00 Former smoker Z87.891 Diabetes type 2, controlled E11.9 COPD (chronic obstructive pulmonary disease) J44.9 Sinus tachycardia R00.0 Dyspnea R06.00
[2022-10-28 11:42] LABS: Glucose Point of Care 120 mg/dL (70-110)
--- NOTE | 2022-10-28 11:57 | PC.SOCIAL ---
IMM Update pg 2 of IMM updated and reviewed w/ patient. Copy provided and Copy dated, initialed and placed in chart.
[2022-10-28 12:00] LABS: ABG PCO2 51.7 mmHg (35-45); ABG PH Result 7.41 (7.35-7.45); Base Excess ABG 6.6 mmol/L (-2.0-2.0); Blood Gas Allen Test Pos; Blood Gas Operator Identificat WALCI; Blood Gas Sample Site Radial, left; Blood Gas Sample Type Arterial; Oxygen Device NC; PO2 ABG 70.8 mmHg (80.0-100.0)
--- NOTE | 2022-10-28 12:07 | ECG_ITS ---
[facility] Test Date: 2022-10-28 Pat Name: Fanny Dao Department: Room: 259 Gender: Female Order Entry: : 1955 Requested By: Gill Harper Order Number: [id number] Betty MD: Abe Marvin M.D. Measurements Intervals Scheller Rate: 104 P: 78 TX: 144 QRS: 52 QRSD: 72 T: 71 QT: 330 QTc: 435 Interpretive Statements SINUS TACHYCARDIA Compared to ECG 10/25/2022 02:37:55 No significant changes Electronically Signed On 10-28-2022 20:44:10 CDT by Abe Marvin M.D. [email or web address] [facility] shawgifted2you/store/OM/[id number]
[2022-10-28] MEDS: magnesium sulfate premix 2 GM/50 ML PIGGYBACK IV (13:31)
[2022-10-28] MEDS: sertraline 50 mg Tablet PO (14:34)
[2022-10-28] MEDS: dilTIAZem 30 mg Tablet PO ×2 (14:35→20:29)
[2022-10-28] MEDS: sodium chloride 0.9% 1,000 ML 75 ML IV (14:39)
[2022-10-28 17:20] LABS: Glucose Point of Care 165 mg/dL (70-110)
[2022-10-28] MEDS: atorvastatin 40 mg Tablet 80 MG PO (20:29)
[2022-10-28 21:32] LABS: Glucose Point of Care 151 mg/dL (70-110)
[2022-10-29] VITALS (17 sets, daily range): BP systolic 138–160; BP diastolic 72–87; PULSE 85–112; RESP 17–22; TEMP 36.3–36.8; O2SAT 89–98
[2022-10-29] MEDS: ipratropium-albuterol 3 mL Neb INHALATION ×3 (00:50→20:58)
[2022-10-29] MEDS: sodium chloride 0.9% 1,000 ML 75 ML IV ×2 (03:53→17:54)
[2022-10-29] MEDS: levoFLOXacin 750 mg Tablet PO (05:51)
--- NOTE | 2022-10-29 06:24 | P.PN_ITS ---
Subjective Subjective: Patient is getting BiPAP dependent I will ask my case management manager to get the BiPAP approval because her PCO2 is around 52 and she gets increased work of breathing without BiPAP I will get CT scan of chest without contrast Patient experiencing dry cough Vitals/I&O/Wt Last Vital Signs Temp 97.4 F L 10/29/22 00:00 Pulse 88 10/29/22 04:55 Resp 17 10/29/22 04:52 BP 140/82 10/29/22 04:00 Pulse Ox 95 10/29/22 04:55 O2 Del Method BiPAP 10/29/22 04:52 O2 Flow Rate 3.5 10/28/22 08:00 FiO2 30 10/29/22 04:55 10/28/22 10/28/22 10/29/22 14:59 22:59 06:59 Intake Total 420 / 420 170 / 590 992.5 / 1582.5 Balance 420 / 420 170 / 590 992.5 / 1582.5 Physical Exam Narrative: Frail female Increased work of breathing BiPAP dependent S1, S2 Abdomen soft No signs of congestive heart failure Nonfocal neuro exam Patient is anxious and restless Data 10/28/22 05:22 10/28/22 05:22 A&P Assessment and plan (1) Dyspnea: (2) Sinus tachycardia: (3) Pneumonia: (4) Acute respiratory failure with hypoxia: (5) Acute exacerbation of chronic obstructive airways disease: (6) Former smoker: (7) Diabetes type 2, controlled: (8) Anxiety: Plan Acute COPD exacerbation Due to pneumonia Continue antibiotics Patient is getting BiPAP dependent Her work of breathing gets really significant without BiPAP PCO2 around 52 with hypoxia she would qualify for BiPAP It is of utmost importance to get BiPAP approved for this patient otherwise she could suffer from respiratory distress, respiratory failure requiring mechanical ventilation, failure to get BiPAP would be very detrimental for this patient Overnight pulse ox study could not be done off BiPAP which tells us the severity of her COPD I am going to get CT scan of her chest without contrast We will touch base with her son Cultures negative to date Patient was not able to participate with PT because of her increased work of breathing She has remained afebrile Patient uses trilogy at home, she was not on oxygen before this admission, I have used IV steroids and magnesium to help her with her wheezing however not a significant difference noted since yesterday, Patient is full code Cardiac diet DVT prophylaxis on board PE has been ruled out Attestations Medical Necessity Statement*: Continue medical management Diagnoses Dyspnea R06.00 Sinus tachycardia R00.0 Pneumonia J18.9 Acute respiratory failure with hypoxia J96.01 Acute exacerbation of chronic obstructive airways disease J44.1 Former smoker Z87.891 Diabetes type 2, controlled E11.9 Anxiety F41.9
[2022-10-29 06:41] LABS: Glucose Point of Care 207 mg/dL (70-110)
[2022-10-29] MEDS: budesonide 0.5 mg/2 mL Neb INHALATION ×2 (08:43→20:58)
[2022-10-29 09:15] LABS: Phosphorus 3.2 mg/dL (2.5-4.5)
[2022-10-29] MEDS: pantoprazole 40 mg SDV IVP (09:29)
[2022-10-29] MEDS: lisinopril 20 mg Tablet 40 MG PO (09:30)
[2022-10-29] MEDS: pregabalin 100 mg Capsule PO ×3 (09:30→21:10)
[2022-10-29] MEDS: sertraline 50 mg Tablet PO ×2 (09:30→15:35)
[2022-10-29] MEDS: enoxaparin 40 mg/0.4 mL Syringe SUBCUT (09:30)
[2022-10-29] MEDS: amlodipine 5 mg Tablet PO (09:30)
[2022-10-29] MEDS: insulin lispro 100 unit/1 mL SUBCUT ×2 (09:30→17:53)
[2022-10-29] MEDS: dilTIAZem 30 mg Tablet PO ×3 (09:30→21:10)
--- NOTE | 2022-10-29 10:52 | CT_ITS ---
WS: [id number] CT CHEST TECHNIQUE: Noncontrast CT of the chest with coronal and sagittal reformatted images. CLINICAL INFORMATION: copd, hypoxia COMPARISON: None. DLP: 574.[address] scans at [facility] use at least one of these dose optimization techniques: automated e xposure control; mA and/or kV adjustment per patient size (includes targeted exams where dose is matc hed to clinical indication); or iterative reconstruction. FINDINGS: Mild to moderate chronic emphysematous changes. Slight hazy atelectasis in the lung bases. No focal p neumonia or pleural fluid. Aortic calcification. Normal caliber thoracic aorta. Coronary calcificatio n. No mediastinal or hilar lymphadenopathy. Normal GE junction. Cholelithiasis. Adrenal glands are normal. Partially visualized small RIGHT renal cyst. Noncontrast spleen is normal. Slightly cirrhotic configuration to the liver. Prior postoperati ve changes pedicle screw fixation with interconnecting rods cervical and upper thoracic spine. CT/CT chest wo con [id number] IMPRESSION: 1. Mild to moderate chronic emphysematous changes. No acute pulmonary infiltra luana. 2. Cholelithiasis. 3. Slightly cirrhotic configuration to the liver.Correlation with liver functi on tests. 4. No other acute findings.
[2022-10-29] MEDS: roflumilast 500 mcg Tablet PO (11:58)
[2022-10-29 12:06] LABS: Glucose Point of Care 120 mg/dL (70-110)
[2022-10-29 15:54] LABS: Ammonia 33 umol/L (11-51)
[2022-10-29 16:09] LABS: Hepatitis B Surface AB 11.5 (11.5-1000); Hepatitis B Surface Antigen Non-Reactive (Nonreactive)
[2022-10-29 16:12] LABS: Tumor Marker Alpha Fetoprotein 3.2 ng/mL (0-8.3)
[2022-10-29 16:54] LABS: Hepatitis A Antibody IgM Reactive (Nonreactive); Hepatitis B Core AB, Total Reactive (Nonreactive); Hepatitis C Virus Antibody Reactive (Nonreactive)
[2022-10-29 17:07] LABS: Glucose Point of Care 146 mg/dL (70-110)
[2022-10-29 20:37] LABS: Glucose Point of Care 172 mg/dL (70-110)
[2022-10-29] MEDS: atorvastatin 40 mg Tablet 80 MG PO (21:10)
[2022-10-29 21:13] LABS: Adenovirus Not Detected (NOT DETECT); Chlamydia Pneumoniae Not Detected (NOT DETECT); Coronavirus 229E,HKU1,NL63,OC4 Not Detected (NOT DETECT); Human Metapneumovirus Not Detected (NOT DETECT); Human Rhinovirus/Enterovirus Not Detected (NOT DETECT); Influenza A Not Detected (NOT DETECT); Influenza A H1 Not Detected (NOT DETECT); Influenza A H1-2009 Not Detected (NOT DETECT); Influenza A H3 Not Detected (NOT DETECT); Influenza B Not Detected (NOT DETECT); Mycoplasma Pneumoniae Not Detected (NOT DETECT); Parainfluenza Virus Type 1 Not Detected (NOT DETECT); Parainfluenza Virus Type 2 Not Detected (NOT DETECT); Parainfluenza Virus Type 3 Not Detected (NOT DETECT); Parainfluenza Virus Type 4 Not Detected (NOT DETECT); Respiratory Syncytial Virus A Not Detected (NOT DETECT); Respiratory Syncytial Virus B Not Detected (NOT DETECT); SARS-COV-2 Not Detected (NOT DETECT)
[2022-10-29 23:01] LABS: ABG PCO2 43.4 mmHg (35-45); ABG PH Result 7.42 (7.35-7.45); Arterial Blood Gas Hematocrit 50.1 % (37-47); Base Excess ABG 3.3 mmol/L (-2.0-2.0); Blood Gas Allen Test Pos; Blood Gas Sample Type Arterial; HCO3 ABG 28.3 mmol/L (22-26); PO2 ABG 54.5 mmHg (80.0-100.0)
[2022-10-29 23:03] LABS: Blood Gas Operator Identificat MONRO; Blood Gas Sample Site Brachial, left; Oxygen Device ROOM AIR
[2022-10-30] VITALS (9 sets, daily range): BP systolic 136–180; BP diastolic 78–96; PULSE 84–132; RESP 18–20; TEMP 35.8–36.5; O2SAT 2–98
[2022-10-30] MEDS: levoFLOXacin 750 mg Tablet PO (05:04)
[2022-10-30] MEDS: sodium chloride 0.9% 1,000 ML 75 ML IV (05:46)
[2022-10-30 06:42] LABS: Glucose Point of Care 134 mg/dL (70-110)
--- NOTE | 2022-10-30 07:24 | USCV_ITS ---
Fanny Dao Age: 66 Gender: F : 1955 Exam Date: 10/30/2022 08:18 Ordering Phys: Gill Harper MD Technologist: Chip Baxter [place] [facility] [place]: SOB BP: 137 / 78 HR: 188 Rhythm: Sinus Technical Quality: Adequate MEASUREMENTS (Male / Female) Normal Values 2D ECHO LVOT Diameter 2.0 cm LV Ejection Fraction MOD 2C 77.4 % LV Ejection Fraction 2C AL 78.1 % LA Diameter 3.2 cm LA Width 2.9 cm LA Height 4.2 cm RA Width 2.4 cm RA Height 3.9 cm Aorta at Sinotubular Diameter 2.0 cm IVC Diameter 1.7 cm M-MODE Aortic Annulus Diameter 2.1 cm LA Ao Ratio MM 1.6 MV E Point Septal Separation 0.4 cm DOPPLER AV Peak Velocity 159.0 cm/s LVOT Peak Velocity 136.0 cm/s AV Area Cont Eq vti 2.7 cm squared AV Area Cont Eq pk 2.7 cm squared MV Peak Velocity 165.0 cm/s MV Area PHT 4.6 cm squared Mitral E to A Ratio 0.8 MV E' Velocity 52.5 cm/s Mitral E to MV E' Ratio 10.6 Mitral E to LV E' Lateral Ratio 10.3 Mitral E to LV E' Septal Ratio 10.9 TR Peak Velocity 338.0 cm/s TR Peak Gradient 45.7 mmHg TR Mean Velocity 258.8 cm/s TR Mean Gradient 29.0 mmHg TR Velocity Time Integral 94.0 cm Right Atrial Pressure 3.0 mmHg Pulmonary Artery Systolic Pressu 48.7 mmHg PV Peak Velocity 95.0 cm/s RV Acceleration Time 0.1 s RV Ejection Time 0.3 s RV AcT/ET 0.5 FINDINGS Left Ventricle Left ventricle is normal in size. LV systolic function is normal with EF 60 to 65%. No regional wall motion abnormalities are seen. Grade 1 diastolic dysfunction Right Ventricle Normal in size and function Right Atrium Normal in size Left Atrium Normal in size Mitral Valve Mild mitral annular calcification. Mild mitral regurgitation Aortic Valve Structurally normal aortic valve. No significant stenosis or regurgitation. Tricuspid Valve Mild tricuspid regurgitation. Insufficient TR jet to calculate RVSP Pulmonic Valve Not well visualized Pericardium Normal Aorta Normal in size IVC Appears to be normal CONCLUSIONS LV systolic function is normal with EF of 60 to 65%. Grade 1 diastolic dysfunction Mild mitral regurgitation Mild tricuspid regurgitation No comparison studies are available Abe Marvin MD (Electronically Signed) Final Date: 30 October 2022 11:30 S
[2022-10-30] MEDS: budesonide 0.5 mg/2 mL Neb INHALATION (07:52)
[2022-10-30] MEDS: pantoprazole 40 mg SDV IVP (09:44)
[2022-10-30 10:07] LABS: Alanine Aminotransferase 22 U/L (0-33); Albumin Level 3.9 g/dL (3.5-5.2); Alkaline Phosphatase 55 U/L (35-105); Aspartate Amino Transferase 20 U/L (0-32); Blood Urea Nitrogen 24 mg/dL (8-23); Calcium 8.9 mg/dL (8.5-10.5); Carbon Dioxide 26 mmol/L (22-29); Chloride 105 mmol/L (98-107); Globulin 2.8 g/dL (1.3-4.6); Glomerular Filtration Rate 83.7 mL/min (90-130); Glucose 144 mg/dL (65-115); Osmolality Calculated 299 mOsm/kg (285-295); Sodium 141 mmol/L (136-145); Total Bilirubin 0.3 mg/dL (0.15-1.2); Total Protein 6.7 g/dL (6.6-8.7)
[2022-10-30] MEDS: lisinopril 20 mg Tablet 40 MG PO (10:10)
[2022-10-30] MEDS: roflumilast 500 mcg Tablet PO (10:10)
[2022-10-30] MEDS: dilTIAZem 30 mg Tablet PO (10:10)
[2022-10-30] MEDS: pregabalin 100 mg Capsule PO (10:10)
[2022-10-30] MEDS: amlodipine 5 mg Tablet PO (10:11)
[2022-10-30] MEDS: enoxaparin 40 mg/0.4 mL Syringe SUBCUT (10:11)
[2022-10-30] MEDS: sertraline 50 mg Tablet PO (10:11)
--- NOTE | 2022-10-30 10:41 | P.DS_ITS ---
Discharge Providers Date of Admission: 10/25/22 07:57 Date of Discharge: October 30, 2022 Attending Provider at Admission: Samir Pimentel MD Attending Provider at Discharge: Gill Harper MD Primary Care Provider: Cooper Patel MD Diagnoses at Discharge Discharge Diagnosis (1) Dyspnea: Status: Acute (2) Sinus tachycardia: Status: Acute (3) Pneumonia: Status: Acute (4) Acute respiratory failure with hypoxia: Status: Acute (5) Acute exacerbation of chronic obstructive airways disease: Status: Acute (6) Former smoker: Status: Acute (7) Diabetes type 2, controlled: Status: Acute (8) Anxiety: Status: Acute Reason for Visit Reason for Visit: Difficulty breathing, COPD flare up Hospital Course Hospital Course 66-year female with history of COPD, not oxygen dependent prior to her arrival to the ER, has quit smoking, history of hepatitis C induced liver cirrhosis, she was treated for hepatitis C in the past, she was managed for acute COPD exacerba tion, she was put on Levaquin for possible pneumonia however CT scan of the chest did not show any active consolidation, her wheezing was pretty bad it took us 3 to 4 days to control her wheezing with IV steroids, she gets easily short of breath on exertion, echo was requested as well to rule out cardiac etiology, she did not complain of any chest pain, she remained afebrile no leukocytosis. VQ scan was requested because of high D-dimer however no signs of PE on VQ scan. No signs of DVT on venous duplex. PCO2 51.7 PO2 low as well however she did not qualify for BiPAP because her insurance denied BiPAP because PCO2 was not above 52, we did get nocturnal hypoxemia and repeat blood gas showed improvement of PCO2, her wheezing has improved on 10/30, she is feeling much more energetic, cough has improved as well, patient has been counseled to see a technical training coordinator outpatient and attend pulmonary rehab. I will change her albuterol to Xopenex because of her sinus tachycardia. She does use trilogy inhaler at home, she qualified for 3 L of oxygen Please note, this patient is high risk for readmission for her hypoxic hypercapnic respiratory failure, during this visit she required BiPAP, it took us about 72 hours with use of IV steroids to improve her wheezing Patient is full code Her son's phone number is [phone]: Star Hepatitis A IgM positive however she does not have any active symptoms, no nausea, vomiting, diarrhea or jaundice Physical Exam Narrative: Awake and alert Wheezing improved Abdomen soft No signs of congestive heart failure Awake and alert Pursed lip breathing Discharge Data Studies Completed and Pending Completed Studies During Hospitalization Category Date Time Status CT chest wo con [id number] Routine Cat Scan 10/29/22 10:52 Completed XR chest 1V portable [id number] Routine Exams 10/27/22 Completed XR chest 1V portable [id number] Stat Exams 10/25/22 02:51 Completed XR chest 1V portable [id number] Stat Exams 10/25/22 20:12 Completed NM pul vent and perfus* [id number] Routine Nuc Med 10/27/22 22:55 [place] [id number] Routine Ultrasound 10/26/22 08:57 Completed Pending at discharge Category Date Time Status Hepatitis C RNA Viral Load Qnt Routine Lab 10/29/22 16:55 Received CV. echo complete* [id number] Routine Ultrasound 10/30/22 07:24 Taken Radiology Impressions Venous Duplex 10/26/22 08:57 IMPRESSION: No evidence of deep vein thrombosis. Chest X-Ray 10/27/22 00:00 IMPRESSION: 1. Infiltrate noted along the right heart border is unchanged in appearance. 2. Pulmonary hyperinflation. Pulmonary Perfusion Imaging 10/27/22 22:55 IMPRESSION: 1. Low probability for pulmonary embolus. Chest CT 10/29/22 10:52 IMPRESSION: 1. Mild to moderate chronic emphysematous changes. No acute pulmonary infiltrates. 2. Cholelithiasis. 3. Slightly cirrhotic configuration to the liver.Correlation with liver function tests. 4. No other acute findings. Laboratory Results WBC 9.6 10^3/uL (4.0-10.0) 10/28/22 05:22 RBC 5.45 10^6/uL (4.1-5.3) H 10/28/22 05:22 Hgb 16.4 g/dL (11.5-15.3) H 10/28/22 05:22 Hct 52.1 % (37.0-47.0) H 10/28/22 05:22 MCV 95.6 fl (81-99) 10/28/22 05:22 MCH 30.1 pg (28.0-34.0) 10/28/22 05:22 MCHC 31.5 g/dL (30.0-36.0) 10/28/22 05:22 RDW 13.2 % (12.1-15.1) 10/28/22 05:22 Plt Count 199 10^3/cmm (130-400) D 10/28/22 05:22 MPV 11.9 fL (7.4-10.4) H 10/28/22 05:22 Neut % (Auto) 69.5 % 10/28/22 05:22 Lymph % (Auto) 21.4 % 10/28/22 05:22 [place] % (Auto) 8.3 % 10/28/22 05:22 Eos % (Auto) 0.3 % 10/28/22 05:22 Baso % (Auto) 0.1 % 10/28/22 05:22 Neut # (Auto) 6.64 10^3/uL (1.8-7.7) 10/28/22 05:22 Lymph # (Auto) 2.1 10^3/uL (0.8-4.8) 10/28/22 05:22 [place] # (Auto) 0.8 10^3/uL (0.2-0.9) 10/28/22 05:22 Eos # (Auto) 0.0 10^3/uL (0.0-0.8) 10/28/22 05:22 Baso # (Auto) 0.0 10^3/uL (0.0-0.1) 10/28/22 05:22 Nucleated RBC % (auto) 0 % 10/28/22 05:22 Nucleated RBCs # 0.0 /100WBC 10/28/22 05:22 D-Dimer 1.80 ug/mIFEU (0-0.59) H 10/25/22 21:45 Specimen Type Arterial 10/29/22 22:40 Sample Site Brachial, left 10/29/22 22:40 ABG pH 7.42 (7.35-7.45) 10/29/22 22:40 ABG pCO2 43.4 mmHg (35-45) 10/29/22 22:40 ABG pO2 54.5 mmHg (80.0-100.0) L 10/29/22 22:40 ABG HCO3 28.3 mmol/L (22-26) H 10/29/22 22:40 ABG O2 Saturation 98.4 10/25/22 20:01 ABG Base Excess 3.3 mmol/L (-2.0-2.0) H 10/29/22 22:40 Moises Test Pos 10/29/22 22:40 A-a O2 Gradient 15.7 mmHg (5-10) H 10/25/22 20:01 Hematocrit 50.1 % (37-47) H 10/29/22 22:40 Hgb O2 Saturation 97.3 % (95-100) 10/25/22 20:01 Carboxyhemoglobin 1.0 %THgb (0.4-20.1) 10/25/22 20:01 Methemoglobin 0.1 % (0.4-1.5) L 10/25/22 20:01 Total Hemoglobin 15.4 g/dL (12-16) 10/25/22 20:01 Sodium 141.0 mmol/L (131-143) 10/25/22 20:01 Potassium 4.4 mmol/L (3.5-5.0) 10/25/22 20:01 Glucose 166.0 mg/dL (70-115) H 10/25/22 20:01 Ionized Calcium 1.2 mmol/L (1.1-1.4) 10/25/22 20:01 O2 Delivery Device Room air 10/29/22 22:40 O2 Liters/Min 3.0 % 10/28/22 11:49 FiO2 21.0 % 10/29/22 22:40 Flavoring Machine Operator ID Monro 10/29/22 22:40 Sodium 141 mmol/L (136-145) 10/30/22 09:28 Potassium 4.0 mmol/L (3.5-5.1) 10/30/22 09:28 Chloride 105 mmol/L (98-107) 10/30/22 09:28 Carbon Dioxide 26 mmol/L (22-29) 10/30/22 09:28 Anion Gap 14.0 (5-19) 10/30/22 09:28 BUN 24 mg/dL (8-23) H 10/30/22 09:28 Creatinine 0.7 mg/dL (0.5-0.9) 10/30/22 09:28 GFR Calculation 83.7 mL/min (90-130) L 10/30/22 09:28 Glucose 144 mg/dL (65-115) H 10/30/22 09:28 POC Glucose 134 mg/dL (70-110) H 10/30/22 06:29 Estimat Average Glucose 143 10/25/22 03:00 Hemoglobin A1c 6.6 % (4.0-6.0) H 10/25/22 03:00 Calculated Osmolality 299 mOsm/kg (285-295) H 10/30/22 09:28 Lactic Acid 0.8 mmol/L (0.5-2.2) 10/25/22 03:00 Calcium 8.9 mg/dL (8.5-10.5) 10/30/22 09:28 Phosphorus 3.2 mg/dL (2.5-4.5) 10/29/22 07: Magnesium 2.0 mg/dL (1.7-2.3) 10/30/22 09:28 Total Bilirubin 0.3 mg/dL (0.15-1.2) 10/30/22 09:28 AST 20 U/L (0-32) 10/30/22 09:28 ALT 22 U/L (0-33) 10/30/22 09:28 Alkaline Phosphatase 55 U/L (35-105) 10/30/22 09:28 Ammonia 33 umol/L (11-51) 10/29/22 15:16 NT-Pro-B Natriuret Pep 46 pg/mL (0-125) 10/25/22 03:00 Total Protein 6.7 g/dL (6.6-8.7) 10/30/22 09:28 Albumin 3.9 g/dL (3.5-5.2) 10/30/22 09:28 Globulin 2.8 g/dL (1.3-4.6) 10/30/22 09:28 Triglycerides 81 mg/dL (0-150) 10/25/22 03:00 Cholesterol 94 mg/dL (0-200) 10/25/22 03:00 LDL Cholesterol, Calc 45 mg/dL (50-129) L 10/25/22 03:00 HDL Cholesterol 33 mg/dL (60-100) L 10/25/22 03:00 LDL/HDL Ratio 1.36 RATIO (0.00-3.22) 10/25/22 03:00 Cholesterol/HDL Ratio 2.85 mg/dL (0.0-4.40) 10/25/22 03:00 Tumor Marker AFP 3.2 ng/mL (0-8.3) 10/29/22 15:04 TSH 3.36 uIU/mL (0.27-4.20) 10/25/22 03:00 Coronavirus 229E (PCR) Not detected (NOT DETECT) 10/29/22 18:56 Hepatitis A IgM Ab Reactive (Nonreactive) H 10/29/22 15:16 Hep Bs Antigen Non-reactive (Nonreactive) 10/29/22 15:16 Hep Bs Antibody 11.5 (11.5-1000) 10/29/22 15:16 Hep B Core Total Ab Reactive (Nonreactive) H 10/29/22 15:16 Hepatitis C Antibody Reactive (Nonreactive) H 10/29/22 15:16 Influenza Type A Ag negative (Negative) 10/25/22 03:30 Influenza Type B Ag negative (Negative) 10/25/22 03:30 SARS-CoV-2 (PCR) Not detected (NOT DETECT) 10/29/22 18:56 SARS-CoV-2 Ag (Rapid) negative (Negative) 10/25/22 03:30 Vitals Last Vital Signs Temp 96.4 F L 10/30/22 08:00 Pulse 89 10/30/22 08:00 Resp 20 H 10/30/22 07:54 BP 136/87 10/30/22 08:00 Pulse Ox 98 10/30/22 08:00 O2 Del Method Nasal Cannula 10/30/22 07:54 O2 Flow Rate 2 10/30/22 07:54 FiO2 30 10/30/22 05:05 Discharge Plan Discharge Patient Disposition: Home Condition: Stable Prescriptions: New diltiazem HCl [Cardizem LA] 120 mg tablet extended release 24 hr 120 mg PO DAILY Qty: 60 0RF methylprednisolone [Medrol (Anderson)] 4 mg tablets,dose pack See Rx Instructions .ROUTE .COMPLEX Qty: 21 0RF Rx Instructions: orally per package directions levalbuterol tartrate [Xopenex HFA] 45 mcg/actuation HFA aerosol inhaler 2 inh inhalation Q4H PRN (Reason: shortness of breath or wheezing) Qty: 15 5RF Continued lisinopril 40 mg tablet 40 mg PO DAILY Qty: 30 5RF hydroxyzine HCl 25 mg tablet 25 mg PO BID PRN (Reason: anxiety) Qty: 60 5RF Rx Instructions: 1/2 tab every 6 hours as needed for anxiety guaifenesin 600 mg tablet extended release 12hr 600 mg PO BID Qty: 60 5RF sertraline 100 mg tablet 100 mg PO DAILY Qty: 30 5RF trazodone 100 mg tablet 100 mg PO DAILY PRN (Reason: insomnia) Qty: 30 5RF rosuvastatin 20 mg tablet 20 mg PO DAILY Qty: 30 5RF ipratropium bromide 0.02 % solution 2.5 ml inhalation Q6H PRN (Reason: Shortness Of Breath) metformin 500 mg tablet 500 mg PO DAILY Qty: 30 5RF pregabalin 100 mg capsule 100 mg PO TID Qty: 90 3RF amlodipine 5 mg tablet 5 mg PO DAILY Qty: 30 5RF hydrocodone-acetaminophen 7.5-325 mg tablet 1 tab PO TID PRN (Reason: chronic pain) 30 Days Qty: 90 0RF Trelegy Ellipta 100-62.5-25 mcg blister with device 1 inh inhalation DAILY Qty: 60 4RF Discontinued albuterol sulfate [Ventolin HFA] 90 mcg/actuation HFA aerosol inhaler 2 puff inhalation QID Qty: 8.5 3RF Discharge Orders: Discharge Order (Routine); Ordered 10/30/22 Ordered By: Glil Harper Other Ambulatory Orders: DME: Oxygen (Order) Location: None Selected Ordered By: Gill Harper Referrals: Cooper Patel MD [Primary Care Provider] - 10/31/22 10:00 am Datar,Armando Nieto MD [Physician] - 7-10 days Patient Instructions: Opioid Safety Discharge Attestations Time Spent in Discharge Care*: greater than 30 min Quality Metrics Clinical Quality Measures [ No reported AMI, CVA or VTE this stay] Coding Level of Care Code Acute Code for Chg Fwd Diagnoses Dyspnea R06.00 Sinus tachycardia R00.0 Pneumonia J18.9 Acute respiratory failure with hypoxia J96.01 Acute exacerbation of chronic obstructive airways disease J44.1 Former smoker Z87.891 Diabetes type 2, controlled E11.9 Anxiety F41.9
[2022-10-30 11:33] LABS: Glucose Point of Care 202 mg/dL (70-110)
[2022-10-30] MEDS: dilTIAZem ER (24HR) 120 mg Capsule PO (12:19)
--- NOTE | 2022-10-30 15:47 | PC.SOCIAL ---
Imm update Imm updated at bedside. Copy of page 2 provided. Patient verbalized understanding. Copy in chart initialed, dated and timed.
[2022-11-01 19:20] LABS: HEP C RNA Viral Load Quant <1.18 NOT DETECTED Log IU/mL (NOT DETECTED); HEP C RNA Viral Load Quant <15 NOT DETECTED IU/mL (NOT DETECTED)
== END 2022-10-30 14:39 | disposition home or self-care (01) | DRG 189 ==
LOC: ER 04:28 → ER IP 04:47 → MEDSURG 08:04 → ER IP 09:28
PROVIDERS: Internal Medicine; Admitting Provider Family Medicine; Emergency Provider Emergency Medicine; PCP Family Medicine Adult Medicine; Visit Provider Internal Medicine
DX: J96.01 Acute respiratory failure with hypoxia (principal); J44.1 Chronic obstructive pulmonary disease with (acute) exacerbation; Z87.891 Personal history of nicotine dependence; Z86.19 Personal history of other infectious and parasitic diseases; K74.60 Unspecified cirrhosis of liver; Z79.891 Long term (current) use of opiate analgesic; Z79.84 Long term (current) use of oral hypoglycemic drugs; E11.42 Type 2 diabetes mellitus with diabetic polyneuropathy; I10 Essential (primary) hypertension; Z91.041 Radiographic dye allergy status; F41.9 Anxiety disorder, unspecified; E78.49 Other hyperlipidemia; M19.90 Unspecified osteoarthritis, unspecified site; M48.00 Spinal stenosis, site unspecified
CPT/HCPCS: 36415; 36416; 36600; 71045; 71250; 78014; 80048; 80051; 80053; 80061; 82105; 82140; 82330; 82803; 82805; 82962; 83036; 83605; 83735; 83880; 84100; 84443; 85025; 85378; 86705; 86706; 86709; 86803; 87040; 87340; 87426; 87522; 87635; 87804; 93005; 93306; 93970; 94640; 94660; 94664; 94760; 96372; 96374; 99285; A9540; A9567; C9113; J0456; J0696; J1650; J1815; J2920; J2930; J3475; J7030; J7050; J7512; J7626; Q3014

== ENCOUNTER → 2022-11-14 10:02 | Outpatient (BNVA) | payer MEDICARE, SELFPAY | PROVIDERS: PCP Family Medicine Adult Medicine; Visit Provider Family Medicine Adult Medicine | DX: E11.9 Type 2 diabetes mellitus without complications (principal); I10 Essential (primary) hypertension; E78.5 Hyperlipidemia, unspecified | CPT/HCPCS: 80053; 80061; 83036; 84443; 85025 ==

== ENCOUNTER → 2022-12-19 09:16 | Outpatient (BNVA) | payer MEDICARE, MEDICAID, SELFPAY | PROVIDERS: PCP Family Medicine Adult Medicine; Visit Provider Internal Medicine Pulmonary Disease | DX: J44.9 Chronic obstructive pulmonary disease, unspecified (principal); R06.02 Shortness of breath; Z87.891 Personal history of nicotine dependence; Z99.81 Dependence on supplemental oxygen | CPT/HCPCS: 99204 ==

== ENCOUNTER → 2023-02-19 08:38 | Outpatient (BNVA) | payer MEDICARE, MEDICAID, SELFPAY | PROVIDERS: PCP Family Medicine Adult Medicine; Visit Provider Internal Medicine Pulmonary Disease | DX: J44.9 Chronic obstructive pulmonary disease, unspecified (principal); J96.11 Chronic respiratory failure with hypoxia; Z87.891 Personal history of nicotine dependence; Z99.81 Dependence on supplemental oxygen; Z86.16 Personal history of COVID-19 | CPT/HCPCS: 99214 ==

== ENCOUNTER 2023-03-12 11:43 | Outpatient (CLI) | payer MEDICARE, MEDICAID, SELFPAY ==
[2023-03-12 12:27] VITALS: PULSE 112; RESP 20; O2SAT 93
[2023-03-12] MEDS: albuterol 2.5 mg/3 mL Neb INHALATION (12:27)
[2023-03-12 12:32] VITALS: PULSE 110
== END 2023-03-12 11:44 | disposition home or self-care (01) ==
LOC: RT 11:46
PROVIDERS: PCP Family Medicine Adult Medicine; Visit Provider Internal Medicine Pulmonary Disease
DX: R06.02 Shortness of breath (principal); Z87.891 Personal history of nicotine dependence; R94.2 Abnormal results of pulmonary function studies
CPT/HCPCS: 94060; 94618; 94729